=== PATIENT | male | born 1995 | race American Indian/Alaskan Native ===

== ENCOUNTER 2017-07-02 19:40 | Emergency (ER) | payer OTHER ==
--- NOTE | 2017-07-02 21:38 | Emergency Department Report ---
ED Lower Extremity HPI - General Chief Complaint: Extremity Injury, Lower Stated Complaint: LT FOOT PAIN Time Seen by Provider: 07/02/17 21:23 Source: patient Mode of arrival: Ambulatory Limitations: No Limitations - History of Present Illness Initial Comments: Patient presents to ED with c/o left foot pain after accidentally hitting inside of left foot on a shelf when he slipped getting out of the shower; denies swelling, HI, LOC, and neck, back and ankle pain; hurts to walk now, hasn 't taken anything for pain yet MD Complaint: foot injury -: Last night Injury: Foot: Left Type of Injury: blunt Place: home Severity: moderate Worsens With: weight bearing, movement, palpation Context: direct blow Associated Symptoms: able to partially bear weight, ambulatory. denies: snap/ pop sensation, swelling, numbness, tingling, unable to bear weight - Related Data Previous Rx's Medication Instructions Recorded Last Taken Type Naproxen 500 mg PO BID PRN #30 tablet 07/02/17 Unknown Rx traMADol [Ultram 50 MG tab] 50 mg PO Q6HR PRN #10 tablet 07/02/17 Unknown Rx Allergies Allergy/AdvReac Type Severity Reaction Status Date / Time No Known Allergies Allergy Unverified 07/02/17 19:57 ED Review of Systems ROS: Stated complaint: LT FOOT PAIN Other details as noted in HPI Constitutional: denies: weakness Respiratory: denies: cough, shortness of breath Cardiovascular: denies: chest pain, palpitations Gastrointestinal: denies: nausea, vomiting Musculoskeletal: other (Left foot pain). denies: back pain, joint swelling Skin: denies: change in color Neurological: denies: weakness ED Past Medical Hx - Past Medical History Previous Medical History?: No - Surgical History Past Surgical History?: No - Social History Smoking Status: Never Smoker Substance Use Type: None - Medications Home Medications: Home Medications Medication Instructions Recorded Confirmed Last Taken Type Naproxen 500 mg PO BID PRN #30 tablet 07/02/17 Unknown Rx traMADol [Ultram 50 MG tab] 50 mg PO Q6HR PRN #10 tablet 07/02/17 Unknown Rx ED Physical Exam - General Limitations: No Limitations General appearance: alert, in no apparent distress - Head Head exam: Present: atraumatic, normocephalic, normal inspection - Eye Eye exam: Present: normal appearance, PERRL, EOMI Pupils: Present: normal accommodation - Neck Neck exam: Present: normal inspection, full ROM. Absent: tenderness - Respiratory Respiratory exam: Present: normal lung sounds bilaterally. Absent: respiratory distress, wheezes, rales, rhonchi, stridor - Cardiovascular Cardiovascular Exam: Present: regular rate, normal rhythm, normal heart sounds - Extremities Exam Extremities exam: Present: normal inspection, full ROM. Absent: tenderness - Expanded Lower Extremity Exam Left Ankle exam: Present: normal inspection, full ROM. Absent: tenderness, swelling , abrasion, laceration, erythema Foot/Toe exam: Present: full ROM, tenderness (TTP over mid left foot, over medial side, no edema or erythema present). Absent: swelling, abrasion, laceration, ecchymosis, deformity, dislocation, erythema, puncture wound, calcaneal tenderness - Back Exam Back exam: Present: normal inspection, full ROM. Absent: tenderness, muscle spasm, paraspinal tenderness, vertebral tenderness - Neurological Exam Neurological exam: Present: alert, oriented X3, abnormal gait (antalgic gait secondary to left foot pain) - Psychiatric Psychiatric exam: Present: normal affect, normal mood - Skin Skin exam: Present: warm, dry, intact, normal color ED Course Vital Signs 07/02/17 07/02/17 07/02/17 19:44 19:54 21:55 Temperature 98.0 F 98 F Pulse Rate 64 70 Respiratory 18 18 18 Rate Blood Pressure 149/87 149/87 O2 Sat by Pulse 98 98 Oximetry - Reevaluation(s) Reevaluation #1: 07/02/17 21:47 Medicated with motrin ED Lower Extremity MDM - Medical Decision Making Discussed results with patient, told it's a bone contusion and to RICE foot, follow up with PCP if pain doesn't improve, he verbalized understanding Critical care attestation.: If time is entered above; I have spent that time in minutes in the direct care of this critically ill patient, excluding procedure time. ED Disposition Clinical Impression: Contusion of left foot Qualifiers: Encounter type: initial encounter Qualified Code(s): S90.32XA - Contusion of left foot, initial encounter Disposition: TO HOME OR SELFCARE Is pt being admited?: No Condition: Stable Instructions: Foot Contusion (ED) Prescriptions: Naproxen 500 mg PO BID PRN #30 tablet PRN Reason: Pain traMADol [Ultram 50 MG tab] 50 mg PO Q6HR PRN #10 tablet PRN Reason: Pain Referrals: PRIMARY CARE,MD [Primary Care Provider] - 3-5 Days Forms: Work/School Release Form(ED) Time of Disposition: 23:45 Print Language: NAMIBIAN
[2017-07-02] MEDS ORDERED: MOTRIN PO ONE (21:39)
--- NOTE | 2017-07-02 22:30 | XRay Report ---
FINAL REPORT PROCEDURE: XR FOOT 2V LT TECHNIQUE: Two views of the left foot are obtained HISTORY: right foot contusion, medial aspect COMPARISON: No prior studies are available for comparison. FINDINGS: Mild soft tissue swelling is seen. There is no fracture or dislocation. No arthritic changes are seen. IMPRESSION: No bony abnormality is seen.
[2017-07-03 00:08] VITALS: BP 145/81
== END 2017-07-03 00:08 | disposition home or self-care (01) ==
LOC: ED 19:40
DX: S90.32XA Contusion of left foot, initial encounter (principal); W01.0XXA Fall on same level from slipping, tripping and stumbling without subsequent striking against object, initial encounter; Y93.89 Activity, other specified; Y92.89 Other specified places as the place of occurrence of the external cause; Y99.8 Other external cause status
CPT/HCPCS: 99283